=== PATIENT | male | born 1960 | race Caucasian/White ===

== ENCOUNTER 2017-01-02 05:37 | Emergency (ER) | payer OTHER ==
[~2017-01-02] VITALS: Ht 177.8 cm; Wt 75.0 kg
[2017-01-02 05:38] VITALS: BP 127/97; PULSE 96; RESP 20; TEMP 98.1; O2SAT 97
[2017-01-02] MEDS ORDERED: BAYE325T (05:47)
[2017-01-02] MEDS ORDERED: CARV12.52 PO (05:47)
[2017-01-02 06:09] VITALS: O2SAT 99
[2017-01-02 06:24] LABS: AUTOMATED NEUTROPHIL # 2.9 TH/MM3 (1.8-7.7); BASOPHIL % 0.3 % (0.0-2.0); EOSINOPHIL # 0.1 TH/MM3 (0-0.4); EOSINOPHIL % 2.1 % (0.0-4.0); HEMATOCRIT 37.1 % (39.0-51.0); HEMO FLAGS DIFF FINAL; LYMPH % 13.4 % (9.0-44.0); LYMPHOCYTE # 0.6 TH/MM3 (1.0-4.8); MEAN CELL VOLUME 85.6 FL (80.0-100.0); MEAN CORPUSCULAR HEMOGLOBIN 30.5 PG (27.0-34.0); MEAN CORPUSCULAR HGB CONC 35.7 % (32.0-36.0); MONO % 14.3 % (0.0-8.0); NEUT % 69.9 % (16.0-70.0); PLATELET COUNT 132 TH/MM3 (150-450); RED BLOOD COUNT 4.34 MIL/MM3 (4.50-5.90); RED CELL DISTRIBUTION WIDTH 12.7 % (11.6-17.2); WHITE BLOOD COUNT 4.2 TH/MM3 (4.0-11.0)
[2017-01-02 06:27] LABS: BLOOD, URINE NEG (NEG); COMMENT (UR) CULT NOT INDICATED; CULTURE IF INDICATED CULT NOT INDICATED; GLUCOSE,URINE NEG (NEG); KETONE, URINE 10 mg/dL (NEG); MUCUS URINE FEW /lpf (OCC); NITRITE,URINE NEG (NEG); URINE COLOR LIGHT-YELLOW (YELLW/STRAW)
[2017-01-02 06:29] LABS: APTT (PATIENT) 33.1 SEC (24.3-30.1); PROTHROMBIN TIME - PATIENT 10.9 SEC (9.8-11.6)
[2017-01-02 06:42] LABS: ALT (GPT) 29 U/L (12-78); ANION GAP 9 MEQ/L (5-15); AST (GOT) 27 U/L (15-37); BLOOD UREA NITROGEN 12 MG/DL (7-18); CHLORIDE 104 MEQ/L (98-107); GLOMERULAR FILTRATION RATE 66 ML/MIN (>89); MAGNESIUM 1.9 MG/DL (1.5-2.5); POTASSIUM 4.5 MEQ/L (3.5-5.1); SODIUM (NA) 136 MEQ/L (136-145)
[2017-01-02 06:43] LABS: ALKALINE PHOSPHATASE 68 U/L (45-117); TOTAL BILIRUBIN ADULT 0.4 MG/DL (0.2-1.0)
[2017-01-02] MEDS ORDERED: KETOROLAC TROMETHAMINE 30 MG/ML (IVP) VIAL IV PUSH ONE (06:45)
[2017-01-02] MEDS ORDERED: SODIUM CHLOR 0.9% 1000 ML INJ 1,000 ML IV ONE (06:45)
[2017-01-02] MEDS ORDERED: ONDANSETRON HCL 4 MG/2 ML VIAL IV ONE (06:45)
--- NOTE | 2017-01-02 06:47 | RADRPT ---
EXAM DATE/TIME: 01/02/2017 06:13 [place] COMPARISON: No previous studies available for comparison. INDICATIONS : Left flank pain ORAL CONTRAST: No oral contrast ingested. RADIATION DOSE: 14.8 CTDIvol (mGy) MEDICAL HISTORY : Atrial fibrillation. SURGICAL HISTORY : Tonsillectomy. ENCOUNTER: Initial ACUITY: 1 day PAIN SCALE: 9/10 LOCATION: Left flank TECHNIQUE: Volumetric scanning of the abdomen and pelvis was performed. Using automated exposure control and ad justment of the mA and/or kV according to patient size, radiation dose was kept as low as reasonably achievable to obtain optimal diagnostic quality images. FINDINGS: Lung bases are clear. No significant abnormality in the liver, spleen, adrenals, right kidney or panc reas. No left-sided renal calculus or evidence for obstructive uropathy. No free fluid or free air. N o bowel obstruction. CONCLUSION: 1. No acute findings CT abdomen and pelvis. Specifically no left-sided hydronephrosis or evidence for obstructive uropathy. Pedro Pablo Costello MD on January 02, 2017 at 6:41 Board Certified Radiologist. This report was verified electronically.
[2017-01-02] MEDS ORDERED: META800T81 PO (07:47)
[2017-01-02] MEDS ORDERED: HYDR-3534 PO (07:47)
--- NOTE | 2017-01-02 07:47 | PD ---
HPI Chief Complaint: Flank/Kidney Pain Time Seen by Provider: 05:49 Travel History International Travel<30 days: No Contact w/Intl Traveler<30days: No Traveled to known affect area: No History of Present Illness HPI The patient is a 56 year old male who presents to the [facility] emergency department with a history of left-sided low back pain that began approximately a couple months ago, however it had been improving with physical therapy. The patient reports that over the last week and a half he has not been able to go to physical therapy related to problems with his car. He reports that he has not been doing his usual stretches either. The patient reports that last night he had a recurrence of the pain in the same location. He denies having any radiation of pain down into his legs or into his abdomen. He denies having any dysuria, hematuria, urinary urgency or frequency. Incidentally on review of systems he does report having some cough, postnasal drip, congestion and sinus pressure over the last 3 days. The patient reports having some nausea. The patient denies any recent fevers, neck pain, chest pain, shortness of breath, abdominal pain, vomiting, diarrhea, urinary symptoms, numbness or tingling to his arms or legs, bowel or bladder intolerance, or weakness in his arms or legs. [facility] Past Medical History Narrative Medical The patient's past medical history is significant for recent back pain, atrial fibrillation. Atrial Fibrillation: Yes Influenza Vaccination: No Past Surgical History Narrative Surgical The patient's past surgical history is significant for a tonsillectomy. Tonsillectomy: Yes Social History Alcohol Use: Yes Tobacco Use: Yes (3 cigs daily ) Substance Use: Yes (marijuana ) Allergies-Medications (Allergen,Severity, Reaction): Coded Allergies: No Known Allergies (Unverified , 01/02/17) Reported Meds & Prescriptions Reported Meds & Active Scripts Active Reported Donald Aspirin (Aspirin) 325 Mg Tab Carvedilol 12.5 Mg Tab 12.5 Mg PO BID Review of Systems Except as stated in HPI: all other systems reviewed are Neg General / Constitutional: No: Fever Eyes: No: Visual changes HENT: No: Headaches Cardiovascular: No: Chest Pain or Discomfort Respiratory: No: Shortness of Breath Gastrointestinal: No: Abdominal Pain Genitourinary: Positive: Pelvic Pain (left-sided), No: Dysuria Musculoskeletal: Positive: Myalgias, Pain Skin: No Rash Neurologic: No: Weakness Psychiatric: No: Depression Endocrine: No: Polydipsia Hematologic/Lymphatic: No: Easy Bruising Physical Exam Narrative General: The patient is well-developed well-nourished male in no acute distress. Head and Neck exam: Head is normocephalic atraumatic. Eyes: EOMI, pupils are equal round and reactive to light. Nose: Midline septum with pink mucous membranes Mouth: Dentition unremarkable. Moist mucus membranes. Posterior oropharynx is not erythematous. No tonsillar hypertrophy. Uvula midline. Airway patent. Neck: No palpable lymphadenopathy. No nuchal rigidity. No thyromegaly. Cardiovascular: Irregularly irregular with rate control consistent with his history of atrial fibrillation without murmurs, gallops, or rubs. Lungs: Clear to auscultation bilaterally. No wheezes, rhonchi, or rales. Abdomen: Soft, without tenderness to palpation in all 4 quadrants of the abdomen. No guarding, rebound, or rigidity. normal bowel sounds are audible. There is tenderness on palpation of McBurney's point. Negative Moss's sign. Extremities: No clubbing, cyanosis, or edema. 2+ pulses in all 4 extremities. No calf tenderness on palpation. Back: No spinous process tenderness to palpation. The patient has pain on palpation along the left flank, slightly lower than the CVA area, extending down into the area just over the SI joint on the left. Is no overlying erythema or ecchymosis. No step-off or crepitus. Neurologic Exam: Grossly nonfocal. Negative straight leg raise bilaterally. Skin Exam: No rash noted. Intact skin that is warm and dry. Data Data Last Documented VS Vital Signs Date Time Temp Pulse Resp B/P Pulse Ox O2 Delivery O2 Flow Rate FiO2 01/02/17 06:09 99 Room Air 01/02/17 05:38 98.1 96 20 127/97 Orders Electrocardiogram (01/02/17 06:05) Complete Blood Count With Diff (01/02/17 06:05) Comprehensive Metabolic Panel (01/02/17 06:05) Prothrombin Time / Inr (Pt) (01/02/17 06:05) Act Partial Throm Time (Ptt) (01/02/17 06:05) Lipase (01/02/17 06:05) Urinalysis - C+S If Indicated (01/02/17 06:05) Magnesium (Mg) (01/02/17 06:05) Ct Abd/Pel W/O Iv Contrast (01/02/17 06:05) Iv Access Insert/Monitor (01/02/17 06:05) Ecg Monitoring (01/02/17 06:05) Oximetry (01/02/17 06:05) Sodium Chlor 0.9% 1000 Ml Inj (Ns 1000 M (01/02/17 06:45) Ondansetron Inj (Zofran Inj) (01/02/17 06:45) Ketorolac Inj (Toradol Inj) (01/02/17 06:45) Labs Laboratory Tests Test 01/02/17 06:10 White Blood Count 4.2 TH/MM3 Red Blood Count 4.34 MIL/MM3 Hemoglobin 13.2 GM/DL Hematocrit 37.1 % Mean Corpuscular Volume 85.6 FL Mean Corpuscular Hemoglobin 30.5 PG Mean Corpuscular Hemoglobin 35.7 % Concent Red Cell Distribution Width 12.7 % Platelet Count 132 TH/MM3 Mean Platelet Volume 9.1 FL Neutrophils (%) (Auto) 69.9 % Lymphocytes (%) (Auto) 13.4 % Monocytes (%) (Auto) 14.3 % Eosinophils (%) (Auto) 2.1 % Basophils (%) (Auto) 0.3 % Neutrophils # (Auto) 2.9 TH/MM3 Lymphocytes # (Auto) 0.6 TH/MM3 Monocytes # (Auto) 0.6 TH/MM3 Eosinophils # (Auto) 0.1 TH/MM3 Basophils # (Auto) 0.0 TH/MM3 CBC Comment DIFF FINAL Differential Comment Prothrombin Time 10.9 SEC Prothromb Time International 1.0 RATIO Ratio Activated Partial 33.1 SEC Thromboplast Time Urine Color LIGHT-YELLOW Urine Turbidity CLEAR Urine pH 5.0 Urine Specific [place] 1.009 Urine Protein NEG mg/dL Urine Glucose (UA) NEG mg/dL Urine Ketones 10 mg/dL Urine Occult Blood NEG Urine Nitrite NEG Urine Bilirubin NEG Urine Urobilinogen LESS THAN 2.0 MG/DL Urine Leukocyte Esterase NEG Urine RBC LESS THAN 1 /hpf Urine WBC LESS THAN 1 /hpf Urine Mucus FEW /lpf Microscopic Urinalysis Comment CULT NOT INDICATED Sodium Level 136 MEQ/L Potassium Level 4.5 MEQ/L Chloride Level 104 MEQ/L Carbon Dioxide Level 23.0 MEQ/L Anion Gap 9 MEQ/L Blood Urea Nitrogen 12 MG/DL Creatinine 1.15 MG/DL Estimat Glomerular Filtration 66 ML/MIN Rate Random Glucose 107 MG/DL Calcium Level 8.7 MG/DL Magnesium Level 1.9 MG/DL Total Bilirubin 0.4 MG/DL Aspartate Amino Transf 27 U/L (AST/SGOT) Alanine Aminotransferase 29 U/L (ALT/SGPT) Alkaline Phosphatase 68 U/L Total Protein 7.3 GM/DL Albumin 4.1 GM/DL Lipase 261 U/L [facility] Medical Decision Making Medical Screen Exam Complete: Yes Emergency Medical Condition: Yes Medical Record Reviewed: Yes Interpretation(s) Last Impressions Abdomen/Pelvis CT 01/02/17 0605 Signed Impressions: Service Date/Time: Monday, January 02, 2017 06:13 - CONCLUSION: 1. No acute findings CT abdomen and pelvis. Specifically no left-sided hydronephrosis or evidence for obstructive uropathy. Pedro Pablo Costello MD Differential Diagnosis Kidney stone, versus musculoskeletal strain, versus pyelonephritis, versus SI joint dysfunction Narrative Course During the course of the patients emergency department visit, the patients history, examination, and differential diagnosis were reviewed with the patient. The patient had IV access obtained and blood work sent for analysis. The patient was placed on a air sampling and monitoring with oximetry and blood pressure monitoring. An EKG was done on arrival. The patient's EKG shows atrial fibrillation with a heart rate of 99, incomplete right bundle branch block, no other acute ST segment changes or elevation. A CT scan of the abdomen and pelvis to evaluate for possible kidney stone was ordered. The patient was provided normal saline 1 L IV fluid bolus, Toradol 30 mg IV, Zofran 4 mg IV. The patients laboratory studies were reviewed and remarkable for a CBC that shows a white count of 4.2, hemoglobin 13.2, platelets 132 with 14.3 monocytes, CMP is remarkable for glucose of 107, lipase 261, PT PTT unremarkable. Urinalysis shows 10 ketones otherwise unremarkable. Radiology studies were reviewed and remarkable for a CT scan of the abdomen and pelvis that shows no acute abnormality. No left-sided hydronephrosis or obstructive uropathy. The patient on examination reports feeling improved. The patient will be discharged home with a prescription for pain medication, and a muscle relaxer. The patient is encouraged to return back to physical therapy. The patient is resting comfortably and feels better, is alert and in no distress. The patients results and examination findings were discussed with the patient. The repeat examination is unremarkable and benign. The history, exam, diagnostic testing, and current condition do not suggest any significant pathology to warrant further testing, continued ED treatment, admission, or surgical evaluation at this point. The vital signs have been stable. The patient does not have uncontrollable pain, intractable vomiting, or other significant symptoms. The patient's condition is stable and appropriate for discharge. The patient will pursue further outpatient evaluation with a primary care physician or other designated or consulting physician as indicated in the discharge instructions. The patient expressed understanding and was agreeable with this plan. Diagnosis Primary Impression: Low back strain Qualified Code: S39.012A - Low back strain, initial encounter Referrals: Primary Care Physician Patient Instructions: General Instructions, Muscle Spasm (ED), Musculoskeletal Pain (ED) Med/Other Pt SpecificInfo: Prescription(s) given Scripts Metaxalone (Skelaxin)800 Mg [id number] Mg PO TID PRN (SPASM) #15 TAB Ref 0 Prov:Ni Latham MD 01/02/17 Hydrocodone-Acetaminophen (Lortab)7.5-325 Mg Tab1 Tab PO Q6H PRN (PAIN) #12 TAB Ref 0 Prov:Ni Latham MD 01/02/17 Disposition: 01 DISCHARGE HOME Condition: Stable Ni Latham MD Jan 02, 2017 07:47
--- NOTE | 2017-01-02 20:04 | EKG ---
Date Performed: 01/02/2017 Time Performed: 06:14:55 PTAGE: 56 years EKG: ATRIAL FIBRILLATION INCOMPLETE RIGHT BUNDLE BRANCH BLOCK ABNORMAL RHYTHM ECG NO PREVIOUS TRACING DOCTOR: Daphne Sanchez Interpretating Date/Time 01/02/2017 20:01:59
== END 2017-01-02 08:12 | disposition home or self-care (01) ==
LOC: NEPE 05:37
DX: S39.012A Strain of muscle, fascia and tendon of lower back, initial encounter (principal); I48.91 Unspecified atrial fibrillation; Z72.0 Tobacco use; X58.XXXA Exposure to other specified factors, initial encounter
CPT/HCPCS: 74176; 80053; 81001; 83690; 83735; 85025; 85610; 85730; 93005; 96361; 96374; 96375; 99284; J1885; J2405; J7030